=== PATIENT | female | born 2000 | race Caucasian/White ===

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

== ENCOUNTER → 2020-02-27 | Outpatient (CLI) | payer OTHER ==
[~2020-02-27] MED LIST changes: +KEFL500C17 PO; +PRENTAB9 PO; +PYRI1TAB5 PO
--- NOTE | 2020-02-28 08:51 | REP ---
REASON: anatomy. There are no priors for comparison. Multiple ultrasonographic images of the gravid uterus show a single living intrauterine gestation in the breech presentation. Doppler interrogation of the heart shows a heart rate of 146 beats per minute. The placenta is posterior and not low lying. The subjective amniotic fluid volume is within normal limits. The cervix measures 3.6 cm in length and is closed. Evaluation of the maternal adnexal spaces shows no abnormalities. anatomical structures seen to be within normal limits are as follows: Thalami, cavum septum pellucidum, cerebellum, cisterna magna, cerebral ventricles, upper lip, four-chamber heart, ventricular outflow tracts, stomach, cord insertion, three-vessel umbilical cord, urinary bladder, and upper and lower extremities. The structures suboptimally visualized or seen to be of questionable finding are as follows: profile failed to identify a nasal bone. This is not necessarily abnormal at this stage of . Followup for this is recommended. Bilateral renal pelviectasis was seen. This needs to be followed up. The spine was suboptimally visualized due to the lie. CHART: BPD 4.3 cm = 19 weeks 0 days HC 16.2 cm = 19 weeks 0 days AC 13.5 cm = 18 weeks 6 days FL 2.9 cm = 19 weeks 0 days The estimated weight is 267 grams, which is at the 66th percentile for an 18-week 3-day gestational age. IMPRESSION: Single living intrauterine gestation, as described above, with an estimated gestational age of 18 weeks 6 days via composite criteria and an estimated date of delivery of 07/24/2020. No anomalies were detected; however, I recommend a followup examination for re-evaluation of those structures as described above.
== END ==
LOC: M WHC 12:59
PROVIDERS: ATTEND Advanced Practice Midwife
DX: Z34.02 Encounter for supervision of normal first pregnancy, second trimester (principal); Z3A.18 18 weeks gestation of pregnancy

== ENCOUNTER 2020-04-27 05:00 | Emergency (ER) | payer OTHER ==
[~2020-04-27] VITALS: Ht 175.3 cm; Wt 87.8 kg
[~2020-04-27 05:00] MED LIST changes: -KEFL500C17 PO; -PRENTAB9 PO; -PYRI1TAB5 PO
[2020-04-27] MEDS ORDERED: PRENTAB9 PO (05:14)
[2020-04-27 05:45] VITALS: BP 124/68
[2020-04-27] MEDS ORDERED: KEFL500C17 PO (06:18)
[2020-04-27] MEDS ORDERED: PYRI1TAB5 PO (06:18)
[2020-04-27] MEDS ORDERED: PHENAZOPYRIDINE 100 MG TAB PO ONE (06:30)
[2020-04-27] MEDS ORDERED: CEPHALEXIN 500 MG CAP PO ONE (06:30)
== END 2020-04-27 06:38 | disposition admitted as inpatient to this hospital (09) ==
LOC: M ED 05:00
DX: O23.43 Unspecified infection of urinary tract in pregnancy, third trimester (principal); Z3A.27 27 weeks gestation of pregnancy; Z79.899 Other long term (current) drug therapy

== ENCOUNTER 2020-04-27 06:37 | Outpatient (CLI) | payer OTHER ==
[~2020-04-27] VITALS: Ht 175.3 cm; Wt 87.5 kg
[~2020-04-27 06:37] MED LIST changes: +KEFL500C17 PO; +PRENTAB9 PO; +PYRI1TAB5 PO
[2020-04-27 08:58] VITALS: BP 115/63
[2020-04-27] MEDS ORDERED: AMOXICILLIN 500 MG CAP PO ONE (10:00)
[2020-04-27] MEDS ORDERED: PHENAZOPYRIDINE 100 MG TAB PO ONE (10:00)
[2020-04-27 10:01] VITALS: BP 119/56
--- NOTE | 2020-04-27 10:28 | IPNPDOC ---
Obstetrical Progress Note Date of Service Apr 27, 2020 Subjective 19yo G1 at 27+ weeks. Presented today with c/c of dysuria. No flank pain. Denies f/c/n/v/POP/sob/cp. No VB/LOF/uctx. Reports +FM. Objective Normotensive, afebrile. Abd: soft,nt,nd No CVAT b/l [facility] / [facility] culture results. Assessment Heart Rate (FHR): 140 Variability: Moderate Accelerations: Positive Decelerations: None Heart Rate Tracing: Category I Tocometer Contractions: No Assessment and Plan Age: 19 : 1 Term: 0 Pre-term: 0 Abortions: 0 Livin Weeks & Days 27+ Status: Reassuring Additional Comments Treat UTI with Amoxicillin 500mg BID x 7 days Pyelonephritis precautions reviewed. Pyridium 100mg q8h PRN for bladder pain. Follow up in office as scheduled. Routine late 2nd TM / early 3rd TM precautions reviewed. Ht / Wt Ht / Wt Height:5 Feet 9 Inches Weight: 87.500 Kg KIMBERLY NAVARRO DO Apr 27, 2020 10:28
== END 2020-04-27 10:10 | disposition home or self-care (01) ==
LOC: M LDO 06:37
PROVIDERS: ATTEND Advanced Practice Midwife
DX: O23.42 Unspecified infection of urinary tract in pregnancy, second trimester (principal); Z3A.27 27 weeks gestation of pregnancy

== ENCOUNTER 2020-06-30 17:42 | Outpatient (CLI) | payer OTHER ==
[~2020-06-30] VITALS: Ht 175.3 cm; Wt 91.5 kg
[2020-06-30 17:57] VITALS: BP 109/62
[2020-06-30 18:47] VITALS: BP 116/66
== END 2020-06-30 18:55 | disposition home or self-care (01) ==
LOC: M LDO 17:42
PROVIDERS: ATTEND Advanced Practice Midwife
DX: O26.853 Spotting complicating pregnancy, third trimester (principal); Z3A.36 36 weeks gestation of pregnancy

== ENCOUNTER → 2020-06-30 | Outpatient (REF) | payer OTHER ==
[2020-06-30 13:55] LABS: HEMATOCRIT 30.6 % (36.0-47.0); HEMOGLOBIN 10.1 g/dl (12.0-15.5); MEAN CORPUSCULAR HEMOGLOBIN 31.8 pg (27.0-33.0); MEAN CORPUSCULAR VOLUME 96.2 fl (80.0-96.0); PLATELET COUNT, AUTOMATED 183 10^3/uL (150-450); RED BLOOD COUNT 3.18 10^6/uL (4.00-5.40); WHITE BLOOD COUNT 7.8 10^3/uL (4.0-10.0)
== END ==
LOC: M PLALAB 10:22
PROVIDERS: ATTEND Advanced Practice Midwife
DX: Z34.93 Encounter for supervision of normal pregnancy, unspecified, third trimester (principal); Z3A.33 33 weeks gestation of pregnancy

== ENCOUNTER → 2020-07-06 | Outpatient (REF) | payer OTHER | LOC: M SFHCWAGY 16:53 | PROVIDERS: ATTEND Advanced Practice Midwife | DX: Z3A.37 37 weeks gestation of pregnancy (principal); Z34.83 Encounter for supervision of other normal pregnancy, third trimester ==

== ENCOUNTER 2020-07-23 21:12 | Inpatient (IN) | payer OTHER ==
[~2020-07-23] VITALS: Ht 175.3 cm; Wt 94.9 kg
[2020-07-23] MEDS ORDERED: PENICILLIN G POTASSIUM IV 5 MU in D5W MINI-BAG PLUS 100 ML IV STA ×2 (21:40→22:08)
[2020-07-23] MEDS ORDERED: LACTATED RINGER'S 1000 ML IV STA (21:40)
[2020-07-23] MEDS ORDERED: OXYTOCIN DRIP 30 UNITS in IV 1 EA IV SCH (21:45)
--- NOTE | 2020-07-23 22:11 | HPEPDOC ---
Obstetrical History & Physical General Date of Admission Jul 23, 2020 at 21:41 History of Present Illness Lachelle is a 19 y/o at 39.3 weeks, EDC 07/27/20 by LMP on 10/21/19. She r eported to Labor and Delivery tonight with a complaint of SROM at 2100. She reports large amounts of clear fluid continuously leaking from the vagina. Denies vaginal bleeding, contractions. Reports active movement. uncomplicated but her care has been sporadic due to transportation issues. 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 history Past Medical History Medical History Denies Surgical History: Other (ACL Repair) Family History Significant Family History: Diabetes Social History Marital Status: Single Family situation: Spouse/partner home Psychosocial History: No pertinent psych hx * Smoker: non-smoker Alcohol: Denies Drugs: denies Imunizations Tdap status: needs Influenza Status: needs Allergies Coded Allergies: No Known Allergies (Unverified , 09/19/17) Medications Scheduled No.137/Iron/Folic Acd ( Vitamin Tablet) 1 Each Tablet, 1 TAB PO DAILY Physical Examination Physical Examination GENERAL: Alert and oriented times three. BREAST: . ABDOMEN: Gravid and non-tender to touch. FETUS: Is vertex (VTX) by sterile vaginal examination (SVE), fetus is vertex (VTX) by Sandeep. EFW 7-7.5lbs by Leopoltita. PELVIC: Large amount of clear fluid noted on bed, no vaginal bleeding on gloves after SVE. HEART RATE: Regular rate and rhythm. RESPIRATORY: Clear to auscultation (CTA) bilaterally. No accessory muscle use, regular rate. EXTREMITIES: No edema. No clonus. Deep tendon reflexes (DTRs) + 2. Pertinent Laboratoy Data Blood Type: O+ RBC Antibody Screen: Negative HIV: Negative Hepatitis B: Negative Hepatitis C: Negative Rapid Plasma Reagin: Nonreactive Rubella: Immune Chlamydia/Gonorrhea: Negative Group B Streptococcus: Positive Glucose Tolerance Test: 112 Anatomy Ultrasound Ultrasound Date: Feb 27, 2020 Placenta Location: Posterior Normal Anatomy: Yes (Bilateral Renal Pelviectasis seen, unable to identify nasal bone due to gestational age, otherwise normal structures) Placenta Previa: No Estimated Weight (grams): 267 Other Ultrasounds 12/15/19 - [facility] at 8wks 2 days, CRL 1.8cm Steroid Therapy Steroid Therapy: No Vaginal Examination Dilation: 1cm (1-2) Effacement: 90% Station: -1 Cervical Consistency: Soft Cervical Position: Posterior Presentation: Cephalic presentation Assessment Heart Rate (FHR): 125 Variability: Moderate Accelerations: Positive Tocometer Contractions: Yes Frequency: regular, every 2-5 min. Duration: greater than 60 seconds Strength: palpated as mild Multi-drug resistant Organism: No history of MDRO Assessment/Plan Assessment PROM at 39.3weeks GBS Positive Category 1 FHT Plan Admit and orient to Labor and Delivery. Maintenance Journeyman and consent. Diet: Clear liquids. Activity as tolerated. Group B Streptococcus (GBS) Positive, plan to treat with IV Penicillin 5million unit loading dose then 2.5million units every 4hours until delivery. Labs and intravenous (IV) per unit protocol. Plans for non-pharmacologic and IV pain relief as needed. Counseled on Pitocin and induction of labor. Lactated Ringers (LR): Bolus 500 mL, then saline lock. Anesthesia consult for epidural as needed. Anticipate normal spontaneous delivery (). C-S as appropriate. Saira Montgomery CNM Jul 23, 2020 22:11
[2020-07-23 22:13] LABS: HEMATOCRIT 30.4 % (36.0-47.0); HEMOGLOBIN 9.8 g/dl (12.0-15.5); MEAN CORPUSCULAR HEMOGLOBIN 30.2 pg (27.0-33.0); MEAN CORPUSCULAR HGB CONC 32.2 g/dl (32.0-36.5); MEAN CORPUSCULAR VOLUME 93.8 fl (80.0-96.0); PLATELET COUNT, AUTOMATED 207 10^3/uL (150-450); RED BLOOD COUNT 3.24 10^6/uL (4.00-5.40); WHITE BLOOD COUNT 11.5 10^3/uL (4.0-10.0)
[2020-07-23 22:41] LABS: ALT/SGPT 21 U/L (12-78); BILIRUBIN,TOTAL 0.4 MG/DL (0.2-1.0); CREATININE FOR GFR 0.54 MG/DL (0.55-1.30); LDH LACTATE DEHYDROGENASE 183 U/L (84-246); URIC ACID 3.7 MG/DL (2.6-6.0)
[2020-07-23] MEDS: LR 1,000 ML IV SCH (22:53)
[2020-07-24] VITALS (12 sets, daily range): BP systolic 106–138; BP diastolic 55–77
[2020-07-24] MEDS ORDERED: PROMETHAZINE INJ 25 MG/ML VIAL (J2550) IV ONE (00:45)
[2020-07-24] MEDS ORDERED: BUTORPHANOL 2 MG/ML INJ (J0595) IV ONE (00:45)
[2020-07-24] MEDS ORDERED: PENICILLIN G POTASSIUM IV 2.5 MU in IV 1 EA IV SCH (01:45)
[2020-07-24] MEDS: PENICILLIN G POTASSIUM IV 2.5 MU in IV 1 EA IV SCH ×2 (02:33→06:38)
[2020-07-24] MEDS: LR 1,000 ML IV SCH ×2 (02:37→07:49)
[2020-07-24] MEDS ORDERED: FENTANYL 2MCG/ML ROPIVACAINE 0.2% IN 0.9% NACL 100ML IVBAG As Ordered ONE (03:29)
[2020-07-24] MEDS ORDERED: ONDANSETRON 4MG/2ML VIAL IV PRN (03:40)
[2020-07-24] MEDS ORDERED: REFRIGERATOR IV KEYS XX PRN (03:40)
[2020-07-24] MEDS ORDERED: FENTANYL/ROPIVACAINE/NACL BAG 100 ML EPIDURAL SCH (03:40)
[2020-07-24] MEDS ORDERED: NALOXONE INJ 0.4MG/1ML VIAL (J2310 PER 1MG) IV PRN (03:40)
[2020-07-24] MEDS ORDERED: ePHEDrine SULFATE 25 MG/5 ML(5MG/ML) SYRINGE IV PRN (03:40)
[2020-07-24] MEDS ORDERED: LACTATED RINGER'S 1000 ML IV PRN (03:40)
[2020-07-24] MEDS ORDERED: diphenhydrAMINE 50MG/ML VIAL (J1200) IV PRN (03:40)
[2020-07-24] MEDS ORDERED: EPIDURAL/PCA KEYS XX PRN (03:40)
[2020-07-24] MEDS ORDERED: EPIDURAL COMMENT XX SCH (03:40)
--- NOTE | 2020-07-24 06:27 | IPNPDOC ---
Text Note Date of Service The patient was seen on 07/24/20. NOTE Inpatient Subjective: She progressed with Pitocin to 7cm and received epidural. Currently comfortable and sleeping through contractions. Pitocin was restarted after epidural. Objective: VSS Category 2 FHT, moderate variability, no accelerations, variable decelerations w ith contractions UC every 2-3 min., moderate on palpation, soft resting tone. Pitocin running at 4mu/min. SVE Anterior/Right Lip/100/+1 by KAYLA Singer Plan: Continue with Pitocin, Continue Penicillin until delivery, Anticipate vaginal delivery VS,Fishbone, I+O VS, Fishbone, I+O Laboratory Tests 07/23/20 22:00 Vital Signs Date Time Temp Pulse Resp B/P (MAP) Pulse Ox O2 Delivery O2 Flow Rate FiO2 07/24/20 01:20 20 Saira Montgomery CNM Jul 24, 2020 06:27
[2020-07-24 08:42] LABS: CORD GAS ABE A -8.5; CORD GAS HCO3 A 23.7 MEQ/L; CORD GAS O2 SAT A 25.7 %; CORD GAS PCO2 A 85.3 mmHg; CORD GAS PH A 7.061 UNITS; CORD GAS PO2 A 19.3 mmHg; CORD GAS SBC A 16.2 MEQ/L; CORD GAS TCO2 A 26.3 MEQ/L
[2020-07-24 08:45] LABS: CORD GAS ABE V -3.1; CORD GAS HCO3 V 24.1 MEQ/L; CORD GAS O2 SAT V 54.3 %; CORD GAS PCO2 V 51.7 mmHg; CORD GAS PH V 7.286 UNITS; CORD GAS PO2 V 24.1 mmHg; CORD GAS SBC V 20.9 MEQ/L; CORD GAS TCO2 V 25.7 MEQ/L
[2020-07-24] MEDS ORDERED: **PENDING PCN ENTRY XX SCH (09:00)
--- NOTE | 2020-07-24 09:21 | DNPDOC ---
[facility] Delivery Note Delivery Note DATE OF DELIVERY: 24 Jul 2020 PREDELIVERY DIAGNOSIS: 39w4d PROM POST DELIVERY DIAGNOSIS: Delivered, 1 min shoulder dystocia PROCEDURE: Spontaneous vaginal delivery AIRCRAFT REFUELLER: Dr. Ludmila Rosa MD ANESTHESIA: epidural ESTIMATED BLOOD LOSS: 300 mL. FINDINGS: 8 pound 12 ounce (3970g) male , Score 7/8, nuchal cord times 1 and compound left hand. DELIVERY SUMMARY: Lachelle is a 19yo [id number] s/p at 39w4d complicated by 1 min shoulder dystocia after presenting with PROM and having augmentation with pitocin, delivering at 0826 on 07/24/2020. She received an epidural and progressed to C/C/+1, at which point she began pushing. With good maternal effort, infant's head delivered CORINA. Tight nuchal cord not able to be reduced until after delivery. There was a delay in delivering the shoulders more related to compound hand and increased presenting area of the fetus. McRobert's maneuver and suprapubic pressure performed, but ultimately it was only with rotation of the fetus (Kennedy's maneuver), that the infant then delivered- anterior shoulder (compound left hand noted) followed by posterior shoulder and corpus. Nuchal cord reduced. placed on maternal abdomen, initially stunned but then had spontaneous cry and vigorous- Apgars 7/8. Infant's nose and mouth suctioned with bulb suction. After 2 minutes, cord clamped x2 and cut by FOB. Cord gases obtained (pHa 7.061 BE -8.5, pHv 7.286 BE -3.1) and cord blood for MBT O pos. W ith fundal massage and traction on the cord, placenta delivered spontaneously and intact with 3 vessel centrally inserted cord. More fundal massage performed and pitocin given IV per protocol, hemostasis then noted with fundus firm at u- 1cm. Inspection of perineum and vagina revealed a 2mll and some superficial left labial lacerations, repaired with 4-0 and 3-0 vicryl in routine fashion with excellent reapproximation and total hemostasis. Mom and infant were doing well when I left the room. MD Shelley Lynne Katrina D MD Jul 24, 2020 09:21
[2020-07-24] MEDS ORDERED: OXYTOCIN DRIP 30 UNITS in IV 1 EA IV SCH (09:22)
[2020-07-24] MEDS ORDERED: DOCUSATE SODIUM 100MG CAPSULE PO PRN (09:30)
[2020-07-24] MEDS ORDERED: ACETAMINOPHEN 500 MG TAB PO PRN (09:30)
[2020-07-24] MEDS ORDERED: RHOGAM 300 MCG (1500 IU) INJ (J2790) IM SCH (09:30)
[2020-07-24] MEDS ORDERED: BENZOCAINE 20% HEMORRHOIDAL OINTMENT 28GM TUBE TOP PRN (09:30)
[2020-07-24] MEDS ORDERED: ACETAMINOPHEN TAB 650MG DOSE (2X325MG) PO PRN (09:30)
[2020-07-24] MEDS ORDERED: IBUPROFEN 600MG TAB PO PRN (09:30)
[2020-07-24] MEDS ORDERED: MEASLES,MUMPS,RUBELLA VACCINE INJ (MMR-II) (90707) SC SCH (09:30)
[2020-07-24] MEDS: IBUPROFEN 800 MG TAB PO PRN (19:53)
[2020-07-25 05:54] VITALS: BP 132/62
[2020-07-25] MEDS ORDERED: PRENATAL VITAMINS CHEWABLE TABLET PO SCH (09:00)
[2020-07-25] MEDS: IBUPROFEN 800 MG TAB PO PRN ×2 (09:32→16:29)
--- NOTE | 2020-07-25 09:55 | IPNPDOC ---
Progress Note Date of Service: Jul 25, 2020 Day#: 1 Progress Note PPD 1 SUBJECT: Lachelle is a 19yo [id number] s/p at 39w4d complicated by 1 min shoulder dystocia after presenting with PROM and having augmentation with pitocin, delivering at 0826 on 07/24/2020, doing well day # 1. She has been ambulating, voiding spontaneously without issue and tolerating regular diet. Breast feeding without issue. Reports lochia is like a normal period. No f/c/n/v/CP/SOB. OBJECTIVE: VITAL SIGNS: Within normal limits, afebrile. Alert and oriented times three. Abdomen: Fundus firm at U-2. Soft, NTTP. Extremities: no pain with palpation of calves, no edema of BLE ASSESSMENT: Lachelle is a 19yo [id number] s/p at 39w4d complicated by 1 min shoulder dystocia after presenting with PROM and having augmentation with pitocin, delivering at 0826 on 07/24/2020, doing well day # 1. Vitals within normal limits, afebrile, hemodynamically stable with no evidence of infection. PLAN: 1. Discharge to home today if is discharged (per her strong desire), otherwise continue admission until tomorrow. 2. Tylenol and Motrin for pain. 3. Encourage breast feeding and ambulation. 4. Discussed contraception, she is undecided and we will readdress at PP visit 5. Routine PP visit in 6 weeks in clinic. 6. Discussed return precautions at length. Ludmila Rosa MD VS, I&O, 24H, Fishbone Vital Signs/I&O Vital Signs Date Time Temp Pulse Resp B/P (MAP) Pulse Ox O2 Delivery O2 Flow Rate FiO2 07/25/20 05:54 98.2 78 18 132/62 (85) 07/24/20 18:00 98 Room Air I&O- Last 24 Hours up to 6 AM 07/25/20 06:00 Intake Total 5145 ml Output Total 1100 ml Balance 4045 ml Ludmila Rosa MD Jul 25, 2020 09:55
[2020-07-25] MEDS ORDERED: IBUP80TA PO (09:57)
[2020-07-25] MEDS ORDERED: DOK1CAP7 PO (09:57)
--- NOTE | 2020-07-25 10:00 | DS.PDOC ---
Discharge Summary General Date of Admission Jul 23, 2020 at 21:41 Date of Discharge Jul 25, 2020 Discharge Summary PROCEDURES PERFORMED DURING STAY: spontaneous vaginal delivery ADMITTING DIAGNOSES: 1. pre-labor rupture of membranes DISCHARGE DIAGNOSES: 1. pre-labor rupture of membranes s/p COMPLICATIONS/CHIEF COMPLAINT: Labor Check. HISTORY OF PRESENT ILLNESS/HOSPITAL COURSE: Lachelle is a 19yo [id number] s/p at 39w4d complicated by 1 min shoulder dystocia after presenting with PROM and having augmentation with pitocin, delive ring at 0826 on 07/24/2020, doing well day # 1. She has had a benign course and at time of discharge, vitals are within normal limits, afebrile, hemodynamically stable with no evidence of infection. DISCHARGE MEDICATIONS: Please see below. ALLERGIES: Please see below. PHYSICAL EXAMINATION ON DISCHARGE: VITAL SIGNS: Within normal limits, afebrile. Alert and oriented times three. Abdomen: Fundus firm at U-2. Soft, NTTP. Extremities: no pain with palpation of calves, no edema of BLE LABORATORY DATA: Please see below. ACTIVITY: As tolerated, vaginal rest 6 weeks DIET: regular DISPOSITION: home DISCHARGE PLAN/INSTRUCTIONS: 1. Discharge to home today if is discharged (per her strong desire), otherwise continue admission until tomorrow. 2. Tylenol and Motrin for pain. 3. Encourage breast feeding and ambulation. 4. Discussed contraception, she is undecided and we will readdress at PP visit 5. Routine PP visit in 6 weeks in clinic. 6. Discussed return precautions at length. DISCHARGE CONDITION: Stable TIME SPENT ON DISCHARGE: Greater than 20 minutes. Ludmila Rosa MD Vital Signs/I&Os Vital Signs Date Time Temp Pulse Resp B/P (MAP) Pulse Ox O2 Delivery O2 Flow Rate FiO2 07/25/20 05:54 98.2 78 18 132/62 (85) 07/24/20 18:00 98 Room Air I&O- Last 24 Hours up to 6 AM 07/25/20 06:00 Intake Total 5145 ml Output Total 1100 ml Balance 4045 ml Discharge Medications Scheduled No.137/Iron/Folic Acd ( Vitamin Tablet) 1 Each Tablet, 1 TAB PO DAILY, (Reported) Scheduled PRN Docusate Sodium (Dok) 100 Mg Capsule, 100 MG PO QHSP PRN for CONSTIPATION Ibuprofen (Ibuprofen) 800 Mg Tablet, 800 MG PO Q8HP PRN for PAIN LEVEL 6-10 Allergies Coded Allergies: No Known Allergies (Unverified , 09/19/17) Ludmila Rosa MD Jul 25, 2020 10:00
[2020-07-25] MEDS ORDERED: BOOSTRIX/ADACEL VACCINE (DIPHTH/PERTUSS/ACELL/TETANUS) 0.5ML SYR IM ONE (17:00)
== END 2020-07-25 17:45 | disposition home or self-care (01) | DRG 560 ==
LOC: M LDO 21:12 → M LDI 21:41 → M OBS 07-24 10:37
PROVIDERS: ADMIT Advanced Practice Midwife; ATTEND Advanced Practice Midwife
PROC: 10E0XZZ Delivery of Products of Conception, External Approach (ICD-10-PCS; principal; 2020-07-24)
PROC: 0KQM0ZZ Repair Perineum Muscle, Open Approach (ICD-10-PCS; 2020-07-24)
PROC: 0HQ9XZZ Repair Perineum Skin, External Approach (ICD-10-PCS; 2020-07-24)
DX: O66.0 Obstructed labor due to shoulder dystocia (principal); O99.284 Endocrine, nutritional and metabolic diseases complicating childbirth; O32.6XX0 Maternal care for compound presentation, not applicable or unspecified; Z37.0 Single live birth; Z3A.39 39 weeks gestation of pregnancy; O69.1XX0 Labor and delivery complicated by cord around neck, with compression, not applicable or unspecified; O70.1 Second degree perineal laceration during delivery; O70.0 First degree perineal laceration during delivery

== ENCOUNTER 2021-01-13 01:45 | Emergency (ER) | payer OTHER ==
[~2021-01-13] VITALS: Ht 175.3 cm; Wt 94.9 kg
[~2021-01-13 01:45] MED LIST changes: +DOK1CAP7 PO; +EMTR1TAB16 PO; +IBUP80TA PO; -TRUVTAB PO
[2021-01-13 05:32] VITALS: BP 118/60
== END 2021-01-13 05:34 | disposition home or self-care (01) ==
LOC: M ED 01:45
DX: S01.01XA Laceration without foreign body of scalp, initial encounter (principal); W22.8XXA Striking against or struck by other objects, initial encounter; Y92.018 Other place in single-family (private) house as the place of occurrence of the external cause

== ENCOUNTER 2021-01-25 23:58 | Inpatient (IN) | payer MEDICAID, OTHER ==
[~2021-01-25] VITALS: Ht 175.3 cm; Wt 96.1 kg
[2021-01-26 01:05] LABS: HEMOGLOBIN 11.7 g/dl (12.0-15.5); MEAN CORPUSCULAR HEMOGLOBIN 29.7 pg (27.0-33.0); MEAN CORPUSCULAR HGB CONC 32.5 g/dl (32.0-36.5); MEAN CORPUSCULAR VOLUME 91.4 fl (80.0-96.0); PLATELET COUNT, AUTOMATED 256 10^3/uL (150-450); RED BLOOD COUNT 3.94 10^6/uL (4.00-5.40); WHITE BLOOD COUNT 13.6 10^3/uL (4.0-10.0)
[2021-01-26 01:44] LABS: ACETAMINOPHEN LEVEL < 2.0 UG/ML (10.0-30.0); ALBUMIN 3.3 GM/DL (3.2-5.2); ALT/SGPT 15 U/L (12-78); BILIRUBIN,DIRECT 0.1 MG/DL (0.0-0.2); BILIRUBIN,TOTAL 0.3 MG/DL (0.2-1.0); BLOOD UREA NITROGEN 6 MG/DL (7-18); CALCIUM LEVEL 8.6 MG/DL (8.5-10.1); CARBON DIOXIDE LEVEL 27 MEQ/L (21-32); CHLORIDE LEVEL 107 MEQ/L (98-107); CREATININE FOR GFR 0.59 MG/DL (0.55-1.30); ETHYL ALCOHOL (ETHANOL) < 0.003 % (0.000-0.010); GLUCOSE, FASTING 117 MG/DL (70-100); POTASSIUM SERUM 3.4 MEQ/L (3.5-5.1); SALICYLATE LEVEL < 1.7 MG/DL (5.0-30.0); SODIUM LEVEL 138 MEQ/L (136-145); THYROID STIMULATING HORMONE 0.468 uIU/ML (0.463-3.98); TOTAL PROTEIN 6.9 GM/DL (6.4-8.2)
[2021-01-26 03:00] LABS: AMPHETAMINES LEVEL URINE NEGATIVE (NEGATIVE); BARBITURATES URINE NEGATIVE (NEGATIVE); BENZODIAZEPINES URINE NEGATIVE (NEGATIVE); CANNABINOIDS URINE POSITIVE (NEGATIVE); COCAINE METABOLITE URINE NEGATIVE (NEGATIVE); METHADONE URINE NEGATIVE (NEGATIVE); OPIATES URINE NEGATIVE (NEGATIVE); PHENCYCLIDINE URINE NEGATIVE (NEGATIVE)
[2021-01-26 13:25] LABS: RSV AMPLIFICATION NEGATIVE (NEGATIVE)
[2021-01-26 14:23] LABS: HCG, SERUM QUALITATIVE POSITIVE (NEGATIVE)
[2021-01-26 16:19] VITALS: BP 119/66
[2021-01-27 05:57] VITALS: BP 145/65
[2021-01-27] MEDS ORDERED: ZOLO100T PO (08:51)
[2021-01-27] MEDS: PRENATAL VITAMINS CHEWABLE TABLET PO SCH (09:00)
--- NOTE | 2021-01-27 10:50 | MHHPEPDOC ---
General Date Of Admission: Jan 26, 2021 Legal Status: 9.39 Chief Complaint ". Might have been depressed since the baby was born, but I'm not suicidal History of Present Illness HISTORY OF THE PRESENT ILLNESS: Patient is a 20 -year-old Other, female, who [has no previous psychiatric history who apparently has been suffering from depression since July 2020.. She delivered a healthy son June 2020 and has been experiencing increasing depression for the past 6 months. She has been feeling very sad, tired and have no energy and spending a lot of time in bed, with increased sleep. She has frequent crying spells and doesn't experience much efrain in her life. She was given Zoloft 50 mg by her ASSOCIATE PROFESSOR OF SURGERY MD and took it for a month with only mild, benefit, but ran out of it 5 weeks ago.. She was brought to emergency room by her due to increasing depression and admitted on 939 status. The patient denies any suicidal thoughts, plan or intent and is willing to accept treatment, but reports that she has an urgent procedure scheduled this afternoon for her current , which is 7 weeks old. [facility] and is very anxious to keep the appointment. She is denying any psychosis, denies any history of suicidal attempt, has a very good supportive partner and is willing to accept recommendation to take increased Zoloft 100 mg and accept outpatient mental health follow up appt. Patient was also advised to come back to emergency room if her depression gets any worse after the procedure and patient is fully understand.]. Psychiatric Review of Systems Depression (2 or more weeks): depressed mood, anhedonia, insomnia/hypersomnia, decreased energy, difficulty concentrating Harika (4 or more days of): denies Psychosis: denies PTSD: denies Anxiety: situational anxiety, stressor related anxiety Past Psychiatric History Previous Psychiatric Diagnosis: . depression Previous Psychiatric Admissions: . No prior inpatient treatment Suicide Attempts: ., No history of suicidal attempt Psychiatric Follow-up: . Was getting antidepressant from her ASSOCIATE PROFESSOR OF SURGERY Psychiatric medications: ., Zoloft 50 mg Past Medical History Medical Problems Denies any medical issues Head Injury: No Seizures: No Hospitalizations: No Surgeries: No Family Medical/Psychiatric HX Medical Problems Noncontributory Psychiatric Disorders: Yes (. Patient's mother had some depression has been on medications but no inpatient treatment and no history of suicide) Addiction: No Suicide Attemps/Completions: No Addiction History denies Social History Childhood: . Unremarkable. Denies any abuse history Abuse/Trauma:. Current Living Situation: [Lives with her boyfriend of 5 years]. Education: High school. Employment: ., Unemployed Social Support: . Boyfriend Legal: . No legal history. No history of violence Marital: . Been with a boyfriend for 5 years Mental Status Examination General Appearance: appears stated age Build: average Demeanor: average Eye Contact: average Activity: average, anxious Behavior: cooperative Speech: clear, low in volume Mood: depressed, anxious Affect: full, constricted, appropriate, congruent, anxious Thought Process: logical/linear Thought Content (Delusions): none reported, denies SI, HI, AVH Thought Content (Other): none reported Thought Content (Aggressive): none reported Perception (Hallucinations): none reported Perception (Other): none reported Cognition (Impairment of): none reported Cognition(Intelligence Est.): average Oriented: Awake, Alert, Oriented times three Insight: good Judgment: Good Psychosis: Denies Diagnoses depression without any psychosis A-FIB/CHADSVASC A-FIB History Current/History of A-Fib/PAF?: No Current PO Anticoag Therapy: No Age/Risk Factor Scoring CHADSVASC: CHADSVASC Response (Comments) Value Gender Risk Factor Female 1 Hx of CHF No 0 Hx of HTN No 0 Hx of Stroke/TIA/or VTE No 0 Hx of Diabetes No 0 Hx of Vascular Disease No 0 Total 1 Treatment Treatment ordered: NONE Assessment Depressive symptoms of depressed significant, but has not been in active treatment. Patient will be given. Increase Zoloft 100 mg daily and given outpatient appointment to follow up. Patient is not acutely suicidal and has good insight and has good support from her boyfriend and appears safe to discharge so she can follow up with her scheduled procedure. She fully understands that she can come back for inpatient admission if her depressive symptoms worsened. Initial Treatment Plan 1. Patient was admitted on a 939 status. 2. Complete history was obtained. 3. With patients permission, family will be contacted and database will be expanded. 4. Patients medication regimen will be reviewed and changed accordingly. 5. Patient will be provided with protected environment. 6. Patient will be treated with individual, group, and milieu therapies. 7. Patient will receive supportive psych-education. 8. Discharge planning will commence immediately. 9. Outpatient follow-up treatment will be strongly recommended. 10. The initial treatment plan will focus initially on: * Depression. * Risk for suicide. ESTIMATED LENGTH OF STAY: - DAYS. Patient will be discharged today. TIME SPENT COUNSELING AND COORDINATING INITIAL CARE: 44 minutes. Tobacco Cessation Screen If Patient is a Smoker Patient is a nonsmoker N/A-No Antipsychotics Vital Signs Vital Signs Date Time Temp Pulse Resp B/P (MAP) Pulse Ox O2 Delivery O2 Flow Rate FiO2 01/27/21 05:57 99.3 83 18 145/65 (91) 99 Room Air Laboratory Data 24H Labs Laboratory Tests 2 01/26/21 12:18: Coronavirus (COVID-19)(PCR) NEGATIVE, Influenza Type A (RT-PCR) NEGATIVE, Influenza Type B (RT-PCR) NEGATIVE, Respiratory Syncytial Virus (PCR) NEGATIVE Medications Scheduled Sertraline Hcl (Zoloft) 100 Mg Tablet, 100 MG PO QHS for depression Allergies Coded Allergies: No Known Allergies (Unverified , 09/19/17) SEAMUS CULVER M.D. Jan 27, 2021 10:49
--- NOTE | 2021-01-27 11:04 | MHDSPDOC ---
[facility] Discharge Summary Discharge Summary DATE OF ADMISSION: Jan 26, 2021 at 13:27 DATE OF DISCHARGE: January 17 06/01/2021 DISCHARGE DIAGNOSES: 1. . depression 2. . REASON FOR ADMISSION: Admitted due to increasing depression since childbirth. In June 2020. Patient was having crying spells, decreased energy, increased sleep, but no psychosis and no suicidal thoughts CONSULTANTS INVOLVED: None TREATMENT AND PROGRESS ON THE UNIT : The patient remains depressed but not suicidal. [facility] and is asking for discharge to follow up with the appointment. . HOSPITAL COURSE: Patient is fully cooperating with assessment and is not presenting with any psychotic symptoms and does not appear to be acutely suicidal. Patient was given increased the Zoloft prescription and outpatient mental health appointment and advised to come back to the emergency room if her depression worsens. DISCHARGE ASSESSMENT: Remains depressed but not psychotic and not suicidal MENTAL STATUS EXAMINATION ON DISCHARGE: Patient is a 20-year old female, who is , cooperative and in good control. Speech is rational, coherent. Language skills are good . Thought processes including: , Relevant, coherent. Thought content: . No psychotic symptoms, but significant depressive symptoms. Abstract reasoning, and computation: Fair. Description of associations: Were organized. Description of abnormal or psychotic thoughts: None. Judgment: Good. Insight: ,good. Orientation to , well oriented. Recent and remote memory: Good]. Attention span and concentration: Good. Language: . Fund of knowledge: . Mood: , Depressed. Affect: , Appropriate. MEDICATIONS ON DISCHARGE: - for ., Zoloft 100 mg daily for 7 days with 3 refills - for . - for . PLAN/FOLLOWUP ARRANGEMENTS: Arranged by life care planner . The amount of time spent in the coordination of care for this patient was approximately [30 minutes. ETOH/Disorder Med Rx ETOH/DRUG DISORDER RX: N/A Vital Signs/I&Os Vital Signs Date Time Temp Pulse Resp B/P (MAP) Pulse Ox O2 Delivery O2 Flow Rate FiO2 01/27/21 05:57 99.3 83 18 145/65 (91) 99 Room Air Laboratory Data Labs 24H Laboratory Tests 2 01/26/21 12:18: Coronavirus (COVID-19)(PCR) NEGATIVE, Influenza Type A (RT-PCR) NEGATIVE, Influenza Type B (RT-PCR) NEGATIVE, Respiratory Syncytial Virus (PCR) NEGATIVE Medications Scheduled Sertraline Hcl (Zoloft) 100 Mg Tablet, 100 MG PO QHS for depression for 7 Days, #7 Allergies Coded Allergies: No Known Allergies (Unverified , 09/19/17) SEAMUS CULVER M.D. Jan 27, 2021 11:04
--- NOTE | 2021-01-27 17:21 | HPEPDOC ---
[facility] Medical History & Physical Date of Admission Jan 27, 2021 Date of Service: Jan 27, 2021 History and Physical CHIEF COMPLAINT: Depression REASON FOR CONSULT: Medical evaluation HISTORY OF PRESENT ILLNESS: 20 y/o female admitted to the inpatient mental health unit for depression. I am asked to provide a medical assessment of patient admitted to psychiatric unit. My assessment is limited to medical problems and does not address any psychiatric problems which is deferred to the in-house psychiatrist. Patient is currently , approximately 7 weeks by LMP and also had 4 samantha placed on scalp for laceration sustained 14 days ago. She has no other acute medical issues at this time. PAST MEDICAL HISTORY: Post depression PAST SURGICAL HISTORY: None SOCIAL HISTORY: Marital status: single Resides in: house in [place] with boyfriend and 7 month old son, Phong Children: 1 Employment: not currently employeed Tobacco use: none ETOH: occasional Illicit drug use: THC smoking FAMILY HISTORY: No history of CAD/suicide/malignancy ALLERGIES: NKDA REVIEW OF SYSTEMS: A 10 point ROS was obtained and was negative. HOME MEDICATIONS: None PHYSICAL EXAMINATION: VITAL SIGNS: reviewed GENERAL APPEARANCE: Awake, alert, oriented x 3. NAD HEENT: Atraumatic, normocephalic. Eyes are anicteric. Mucous membranes are pink and moist. Coolin in place to top of scalp, no e/o infection CARDIOVASCULAR: NSR, regular rhythm, no noted murmurs LUNGS: CTAB ABDOMEN: Normoactive sounds, soft, nondistended. No rebound tenderness or guarding. EXTREMITIES: No lower extremity edema, no apparent rashes/petechiae. NEUROLOGICAL: Awake, speech is clear, AOx3 PSYCHIATRIC: euthymic LABORATORY DATA: See below. IMAGING: None ASSESSMENT: Medical evaluation for patient admitted to inpatient mental health unit. Patient is doing well and has no active medical problems requiring in hospital management. Removed samantha with staple remover and had no complications. Regarding , will order pre-, though patient expresses interest in pursuing termination of [facility] Follow-up with PCP after discharge. Follow-up with recommendations and management from psychiatry. Vital Signs Vital Signs Date Time Temp Pulse Resp B/P (MAP) Pulse Ox O2 Delivery O2 Flow Rate FiO2 01/27/21 05:57 99.3 83 18 145/65 (91) 99 Room Air Home Medications Scheduled Sertraline Hcl (Zoloft) 100 Mg Tablet, 100 MG PO QHS for depression Allergies Coded Allergies: No Known Allergies (Unverified , 09/19/17) A-FIB/CHADSVASC A-FIB History Current/History of A-Fib/PAF?: No Current PO Anticoag Therapy: No Age/Risk Factor Scoring CHADSVASC: CHADSVASC Response (Comments) Value Age Risk Factor Age < 65 years old 0 Gender Risk Factor Female 1 Hx of CHF No 0 Hx of HTN No 0 Hx of Stroke/TIA/or VTE No 0 Hx of Diabetes No 0 Hx of Vascular Disease No 0 Total 1 SHELLIE JOSHUA MD MPH Jan 27, 2021 17:21
[2021-01-27 17:39] VITALS: BP 120/71
[2021-01-27] MEDS: SERTRALINE 100 MG TAB PO SCH (20:46)
[2021-01-28 05:46] VITALS: BP 118/60
--- NOTE | 2021-01-28 08:30 | MHIPNPDOC ---
[facility] Progress Note Progress Note DATE OF SERVICE: 01/28/21 The initial plan of the discharge and the patient same-day to follow up with the OB procedure was canceled due to strong concern by her boyfriend who is the baby of the father. The boyfriend reported that her depression is such that he has a serious concern for her safety and the presenting mental status does support this concern. The patient this morning is quite distraught bursting into tears and crying saying that she misses her baby and she wants to go home. She does admit that she is very depressed and agrees that she needs help. She is again denying any psychotic symptoms and denies any thoughts of active suicidal nature but appears very emotional, labile and markedly depressed. She did cooperate with her medication of Zoloft and clearly needs further inpatient treatment for stabilization. HISTORY: . VITAL SIGNS: See below. NEW TEST RESULTS: . CURRENT MEDICATIONS: See below. MENTAL STATUS EXAMINATION: Patient is a 20-year old female, who is tearful. Speech: Is relevant, but not productive. Language skills are [fair. Thought processes including: , Not spontaneous, but coherent. Thought content: Denies suicidal thoughts, was feeling very depressed. Abstract reasoning, and computation: , Poor. Description of associations: Relevant. Description of abnormal or psychotic thoughts: Non-. Judgment: poor. Insight: poor. Orientation: , Oriented. Recent and remote memory: fair. Attention span and concentration: fair. Language: . Fund of knowledge: . Mood: Cure for depressed. Affect: Markedly depressed. DIAGNOSES: 1. . Major depression, single episode 2. ., Rule out depression 3. . ASSESSMENT:Remained markedly depressed MANAGEMENT PLAN: Needs stabilization with the medications. Supportive therapy and metallic evaluation. TIME SPENT: 20 minutes. Vital Signs Vital Signs Date Time Temp Pulse Resp B/P (MAP) Pulse Ox O2 Delivery O2 Flow Rate FiO2 01/28/21 05:46 98.5 81 16 118/60 (79) 97 Room Air Current Medications Current Medications Medications (Trade) Dose Ordered Sig/Cliff Route PRN Reason Start Time Stop Time Status Last Admin Dose Admin Home Med (Med Rec Complete!) ASDIRECTED XX 01/26/21 12:25 01/26/21 12:25 DC Prenat Multivit/ Zinc/Iron/Folic Ac ( Vitamins) 1 tab DAILY PO 01/27/21 09:00 Sertraline HCl (Zoloft) 100 mg QHS PO 01/27/21 21:00 01/27/21 20:46 Allergies Coded Allergies: No Known Allergies (Unverified , 09/19/17) SEAMUS CULVER M.D. Jan 28, 2021 08:30
[2021-01-28] MEDS: PRENATAL VITAMINS CHEWABLE TABLET PO SCH (08:50)
[2021-01-28 16:50] VITALS: BP 142/75
[2021-01-28] MEDS: SERTRALINE 100 MG TAB PO SCH (20:13)
[2021-01-28] MEDS: diphenhydrAMINE 50MG CAP PO PRN (21:02)
[2021-01-29 06:00] VITALS: BP 121/56
[2021-01-29] MEDS: ACETAMINOPHEN TAB 650MG DOSE (2X325MG) PO PRN ×2 (08:51→20:15)
[2021-01-29] MEDS: PRENATAL VITAMINS CHEWABLE TABLET PO SCH (08:51)
--- NOTE | 2021-01-29 09:49 | MHIPNPDOC ---
[facility] Progress Note Progress Note DATE OF SERVICE: 01/29/21 The patient is fully cooperated with the medications and tomlin activities. She is not as tearful and not as dramatic and is in better control. She has cooperated with the Zoloft with no complaint of side effects but had a slight difficulty sleeping and was given trazodone with good relief. She is feeling not as anxious or fearful and stated that she spoke with the and feeling reassured and is willing to cooperate with treatment. She is denying any suicidal thoughts and appears not as anxious and slightly more spontaneous. HISTORY: . VITAL SIGNS: See below. NEW TEST RESULTS: . CURRENT MEDICATIONS: See below. MENTAL STATUS EXAMINATION: Patient is a 20-year old female, who is , cooperative and pleasant. Speech: Is rational, coherent. Language skills are good. Thought processes including: Relevant. Thought content: Denies any suicidal thoughts. Abstract reasoning, and computation: fair. Description of associations: , Better organized. Description of abnormal or psychotic thoughts: Denies any hallucination or pa ranoia . Judgment: fair. Insight: fair.. Orientation: , Oriented. Recent and remote memory: Good. Attention span and concentration: fair. Language: . Fund of knowledge: . Mood: Not tearful or and not as anxious]. Affect: , Depressed, appropriate. DIAGNOSES: 1. . Major depression 2. . 3. . ASSESSMENT:Slight improvement MANAGEMENT PLAN: . Continue with the current medicine and supportive therapy. TIME SPENT: 20 minutes. Vital Signs Vital Signs Date Time Temp Pulse Resp B/P (MAP) Pulse Ox O2 Delivery O2 Flow Rate FiO2 01/29/21 06:00 98.5 76 18 121/56 (77) 98 01/28/21 05:46 Room Air Current Medications Current Medications Medications (Trade) Dose Ordered Sig/Cliff Route PRN Reason Start Time Stop Time Status Last Admin Dose Admin Acetaminophen (Tylenol Tab) 650 mg Q6HP PRN PO MILD PAIN or TEMP > 101 01/29/21 08:40 01/29/21 08:51 Diphenhydramine HCl (Benadryl) 50 mg QHSP PRN PO INSOMNIA 01/28/21 20:35 01/28/21 21:02 Home Med (Med Rec Complete!) ASDIRECTED XX 01/26/21 12:25 01/26/21 12:25 DC Prenat Multivit/ Milled [employer]ker/Iron/Folic Ac ( Vitamins) 1 tab DAILY PO 01/27/21 09:00 Sertraline HCl (Zoloft) 100 mg QHS PO 01/27/21 21:00 01/28/21 20:13 Allergies Coded Allergies: No Known Allergies (Unverified , 09/19/17) SEAMUS CULVER M.D. Jan 29, 2021 09:49
[2021-01-29] MEDS: diphenhydrAMINE 50MG CAP PO PRN (20:15)
[2021-01-29] MEDS: SERTRALINE 100 MG TAB PO SCH (20:15)
[2021-01-30 06:19] VITALS: BP 119/57
--- NOTE | 2021-01-30 08:48 | MHIPNPDOC ---
[facility] Progress Note Progress Note DATE OF SERVICE: 01/30/21 The patient has cooperated with the medication has no new complaint and reports no side effect. She appears not as tearful and smiling a little bit and not dem anding and more pleasant on approach. She reports that those she is feeling better and not feeling as sad and hasn't cried. She talked to her boyfriend and was told that the baby said his first word and is very proud of that.. She is denying any suicidal thoughts and appears to be showing some improvement. HISTORY: . VITAL SIGNS: See below. NEW TEST RESULTS: . CURRENT MEDICATIONS: See below. MENTAL STATUS EXAMINATION: Patient is a 20 -year old female, who is , pleasant and cooperative. Speech: Is rational, coherent. Language skills are good. Thought processes including: Relevant. Thought content: No suicidal thoughts. Abstract reasoning, and computation: fair. Description of associations: , Organized. Description of abnormal or psychotic thoughts: Denies . Judgment: fair. Insight: fair.. Orientation: , Oriented. Recent and remote memory: fair. Attention span and concentration: . Language: . Fund of knowledge: . Mood: , Not clearly had said. Affect: More animated and appropriate]. DIAGNOSES: 1. . Major depression 2. . 3. . ASSESSMENT:[Showing improvement and denies any suicidal thoughts] MANAGEMENT PLAN: [Continued the Zoloft and supportive therapy]. TIME SPENT: [20] minutes. Vital Signs Vital Signs Date Time Temp Pulse Resp B/P (MAP) Pulse Ox O2 Delivery O2 Flow Rate FiO2 01/30/21 06:19 99.2 77 18 119/57 (77) 99 Room Air Current Medications Current Medications Medications (Trade) Dose Ordered Sig/Cliff Route PRN Reason Start Time Stop Time Status Last Admin Dose Admin Acetaminophen (Tylenol Tab) 650 mg Q6HP PRN PO MILD PAIN or TEMP > 101 01/29/21 08:40 01/29/21 20:15 Diphenhydramine HCl (Benadryl) 50 mg QHSP PRN PO INSOMNIA 01/28/21 20:35 01/29/21 20:15 Home Med (Med Rec Complete!) ASDIRECTED XX 01/26/21 12:25 01/26/21 12:25 DC Prenat Multivit/ Pershing/Iron/Folic Ac ( Vitamins) 1 tab DAILY PO 01/27/21 09:00 Sertraline HCl (Zoloft) 100 mg QHS PO 01/27/21 21:00 01/29/21 20:15 Allergies Coded Allergies: No Known Allergies (Unverified , 09/19/17) SEAMUS CULVER M.D. Jan 30, 2021 08:48
[2021-01-30] MEDS: PRENATAL VITAMINS CHEWABLE TABLET PO SCH (09:00)
[2021-01-30] MEDS: ACETAMINOPHEN TAB 650MG DOSE (2X325MG) PO PRN (14:50)
[2021-01-30 17:32] VITALS: BP 136/68
[2021-01-30] MEDS: SERTRALINE 100 MG TAB PO SCH (20:48)
[2021-01-30] MEDS: diphenhydrAMINE 50MG CAP PO PRN (20:49)
[2021-01-31 06:37] VITALS: BP 114/61
[2021-01-31] MEDS: PRENATAL VITAMINS CHEWABLE TABLET PO SCH (09:00)
--- NOTE | 2021-01-31 10:46 | MHDSPDOC ---
[facility] Discharge Summary Discharge Summary DATE OF ADMISSION: Jan 26, 2021 at 13:27 DATE OF DISCHARGE: 01/31/2021 DISCHARGE DIAGNOSES: 1. . Major depression, single episode 2. ., Rule out depression REASON FOR ADMISSION: , Severe depression since July 2020 when she had the baby. Patient was admitted after becoming increasingly depressed with crying spells, anhedonia, poor energy, and inability to care for self and the baby. She has no history of corinna and she denied any active suicidal thoughts. CONSULTANTS INVOLVED: [no TREATMENT AND PROGRESS ON THE UNIT : Patient was treated with daily supportive therapy and started on Zoloft 100 mg at bedtime. She is fully cooperate and showed rapid improvement. His becoming much more animated, spontaneous and productive. Reports increased energy and motivation and feeling safe.. HOSPITAL COURSE: . She responded well to the supportive therapy and medication and showed rapid improvement. She is animated, pleasant and reports having more energy and didn't have any more crying spells since 3 days ago. She is willing to accept outpatient treatment and has a supportive boyfriend. DISCHARGE ASSESSMENT: Much improved and stable and not suicidal MENTAL STATUS EXAMINATION ON DISCHARGE: Patient is a 20-year old female, who is , pleasant and cooperative. Speech is rational productive. Language skills are good . Thought processes including: , Coherent. Thought content: Denies any psychosis and no suicidal thoughts. Abstract reasoning, and computation: Fair. Description of associations: Well-organized. Description of abnormal or psychotic thoughts: None . Judgment: Good. Insight: Good. Orientation to , well-oriented. Recent and remote memory: Good. Attention span and concentration: Fair. Language: . Fund of knowledge: . Mood: Euthymic. Affect: . Animated and appropriate MEDICATIONS ON DISCHARGE: - for ., Zoloft 100 mg at bedtime for 7 days with 3 refills - for . - for . PLAN/FOLLOWUP ARRANGEMENTS: Arranged by the digital media planner. The amount of time spent in the coordination of care for this patient was approximately 40 minutes. ETOH/Disorder Med Rx ETOH/DRUG DISORDER RX: N/A Vital Signs/I&Os Vital Signs Date Time Temp Pulse Resp B/P (MAP) Pulse Ox O2 Delivery O2 Flow Rate FiO2 01/31/21 06:37 98.3 83 18 114/61 (78) 99 Room Air Medications Scheduled Sertraline Hcl (Zoloft) 100 Mg Tablet, 100 MG PO QHS for depression for 7 Days, #7 Allergies Coded Allergies: No Known Allergies (Unverified , 09/19/17) SEAMUS CULVER M.D. Jan 31, 2021 10:46
== END 2021-01-31 11:00 | disposition home or self-care (01) | DRG 757 ==
LOC: M ED 23:58 → M ED INP 01-26 13:27 → M PSY 01-26 16:14 → M ED INP 01-26 16:14
PROVIDERS: ADMIT Psychiatry & Neurology Psychiatry; ATTEND Psychiatry & Neurology Psychiatry
DX: F53.0 Postpartum depression (principal)

== ENCOUNTER → 2021-03-01 | Outpatient (CLI) | payer OTHER ==
[~2021-03-01] MED LIST changes: +ZOLO100T PO
--- NOTE | 2021-03-01 14:33 | REP ---
INDICATION: PREG, DATING/VIABILITY. COMPARISON: None. TECHNIQUE: Real-time sonographic evaluation of the gravid uterus performed. FINDINGS: Estimated gestational age is15 weeks 2 days, EDC 08/21/2021. Presentation: Transverse Placenta posterior to the right, grade 0, without evidence of placenta previa. heart rate is recorded at 149 beats per minute. Amniotic fluid is subjectively normal. Closed cervical length is measured at 4.3 cm. Biometry chart: BPD: 30 mm, 15 weeks 4 days, 57th percentile. HC: 110 mm, 15 weeks 2 days, 49th percentile AC: 91 mm, 15 weeks 2 days, 50th percentile Femur length: 18 mm, 15 weeks 2 days, 47th percentile HC to AC ratio: 1.20, normal range 1.10-1.29. Estimated weight: 120g, 37th percentile. Visualization of enemy is limited due to early gestational age. The choroid plexus, facial profile, stomach and bladder are visualized and are grossly unremarkable. There does appear to be a three-vessel umbilical cord and normal appearing cord insertion. IMPRESSION: Viable single intrauterine gestation as above. <Electronically signed by Hussein Hernandez > 03/01/21 [id number]
== END ==
LOC: M RAD 13:13
PROVIDERS: ATTEND Physician Assistant
DX: Z32.01 Encounter for pregnancy test, result positive (principal); Z3A.15 15 weeks gestation of pregnancy

== ENCOUNTER 2021-11-15 17:36 | Emergency (ER) | payer MEDICAID, OTHER ==
[~2021-11-15] VITALS: Ht 175.3 cm; Wt 91.5 kg
[~2021-11-15 17:36] MED LIST changes: +DOK1CAP4 PO; -DOK1CAP7 PO
[2021-11-15] MEDS ORDERED: ACETAMINOPHEN 325 MG TAB PO ONE (19:30)
[2021-11-15] MEDS ORDERED: DOXY-443 PO (20:27)
[2021-11-15 20:59] VITALS: BP 116/65
[2021-11-15] MEDS ORDERED: OSEL75CA PO (21:16)
== END 2021-11-15 21:26 | disposition home or self-care (01) ==
LOC: M ED 17:36
DX: J18.9 Pneumonia, unspecified organism (principal); J09.X2 Influenza due to identified novel influenza A virus with other respiratory manifestations

== ENCOUNTER 2022-03-19 09:57 | Emergency (ER) | payer MEDICAID, SELFPAY ==
[~2022-03-19] VITALS: Ht 175.3 cm; Wt 86.4 kg
[~2022-03-19 09:57] MED LIST changes: +DOXY-443 PO; +OSEL75CA PO
[2022-03-19 14:26] VITALS: BP 113/65
[2022-03-19 14:30] LABS: RSV AMPLIFICATION NEGATIVE (NEGATIVE)
[2022-03-19] MEDS ORDERED: PSEUDOEPHEDRINE 30 MG TAB PO STA (14:39)
[2022-03-19] MEDS ORDERED: ACETAMINOPHEN 500 MG TAB PO ONE (14:40)
[2022-03-19] MEDS ORDERED: BENZONATATE 100MG CAPSULE PO ONE (14:40)
[2022-03-19] MEDS ORDERED: PSEU120T19 PO (14:51)
[2022-03-19] MEDS ORDERED: BENZ200C70 PO (14:51)
== END 2022-03-19 15:57 | disposition home or self-care (01) ==
LOC: M ED 09:57
DX: U07.1 COVID-19 (principal)

== ENCOUNTER 2022-08-05 20:58 | Emergency (ER) | payer MEDICAID, OTHER ==
[~2022-08-05] VITALS: Ht 172.7 cm; Wt 99.5 kg
[~2022-08-05 20:58] MED LIST changes: +BENZ200C70 PO; +PSEU120T19 PO
[2022-08-05 20:59] VITALS: BP 139/89
== END 2022-08-05 21:45 | disposition left against medical advice (07) ==
LOC: M ED 20:58
DX: Z53.21 Procedure and treatment not carried out due to patient leaving prior to being seen by health care provider (principal)

== ENCOUNTER → 2024-04-07 | Outpatient (CLI) | payer MEDICAID, OTHER ==
[~2024-04-07] MED LIST changes: +DOXY-323 PO; -DOXY-443 PO; +ONDA-282 PO; -ONDA4TAB6 PO
[2024-04-07 16:06] LABS: BASO % 0.3 % (0.0-1.0); EOS # 0.1 10^3/uL (0.0-0.5); EOS % 1.2 % (0.0-3.0); HEMATOCRIT 39.2 % (36.0-47.0); HEMOGLOBIN 12.5 g/dl (12.0-15.5); LYMPH % 22.6 % (24.0-44.0); MEAN CORPUSCULAR HEMOGLOBIN 29.6 pg (27.0-33.0); MEAN CORPUSCULAR HGB CONC 31.9 g/dl (32.0-36.5); MEAN CORPUSCULAR VOLUME 92.7 fl (80.0-96.0); MONO # 0.6 10^3/uL (0.0-0.8); MONO % 6.9 % (2.0-8.0); NEUTROPHILS # 6.1 10^3/uL (1.5-8.5); NEUTROPHILS % 68.5 % (36.0-66.0); PLATELET COUNT, AUTOMATED 286 10^3/uL (150-450); RED BLOOD COUNT 4.23 10^6/uL (4.00-5.40); WHITE BLOOD COUNT 8.9 10^3/uL (4.0-10.0)
[2024-04-07 16:36] LABS: ALBUMIN 3.9 G/DL (3.2-5.2); ALKALINE PHOSPHATASE 84 U/L (46-116); ALT/SGPT 22 U/L (7.0-40); AST/SGOT 22 U/L (<34); BILIRUBIN,TOTAL 0.4 MG/DL (0.3-1.2); BLOOD UREA NITROGEN 13 MG/DL (9-23); CALCIUM LEVEL 9.2 MG/DL (8.5-10.1); CARBON DIOXIDE LEVEL 27 MMOL/L (20-31); CHLORIDE LEVEL 108 MMOL/L (98-107); CREATININE FOR GFR 0.66 MG/DL (0.55-1.30); GLOMERULAR FILTRATION RATE > 60.0 (>60); GLUCOSE, FASTING 88 MG/DL (60-100); POTASSIUM SERUM 4.2 MMOL/L (3.5-5.1); SODIUM LEVEL 137 MMOL/L (136-145); TOTAL PROTEIN 7.3 G/DL (5.7-8.2)
[2024-04-07 16:38] LABS: FREE T4 1.14 NG/DL (0.89-1.76); THYROID STIMULATING HORMONE 0.716 uIU/ML (0.55-4.78)
== END ==
LOC: M PLALAB 11:52
PROVIDERS: ATTEND Psychiatry & Neurology Psychiatry
DX: F41.1 Generalized anxiety disorder (principal); F43.23 Adjustment disorder with mixed anxiety and depressed mood

== ENCOUNTER → 2024-06-04 | Outpatient (REF) | payer MEDICAID, OTHER ==
[~2024-06-04] MED LIST changes: -DOXY-323 PO; +DOXY-441 PO
== END ==
LOC: M SFHCWAGY 15:05
PROVIDERS: ATTEND Nurse Practitioner Family
DX: Z12.4 Encounter for screening for malignant neoplasm of cervix (principal); R87.5 Abnormal microbiological findings in specimens from female genital organs

== ENCOUNTER → 2024-06-09 | Outpatient (REF) | payer OTHER | LOC: M SFHCWAGY 14:50 | PROVIDERS: ATTEND Nurse Practitioner Family | DX: D28.0 Benign neoplasm of vulva (principal) ==

== ENCOUNTER → 2024-12-17 | Outpatient (CLI) | payer OTHER ==
[2024-12-17 10:27] LABS: BASO % 0.6 % (0.0-1.0); EOS # 0.2 10^3/uL (0.0-0.5); EOS % 3.3 % (0.0-3.0); HEMATOCRIT 39.3 % (36.0-47.0); HEMOGLOBIN 12.6 g/dl (12.0-15.5); LYMPH # 2.2 10^3/uL (1.5-5.0); LYMPH % 30.3 % (24.0-44.0); MEAN CORPUSCULAR HEMOGLOBIN 29.2 pg (27.0-33.0); MEAN CORPUSCULAR HGB CONC 32.1 g/dl (32.0-36.5); MONO # 0.7 10^3/uL (0.0-0.8); MONO % 9.6 % (2.0-8.0); NEUTROPHILS # 4.1 10^3/uL (1.5-8.5); NEUTROPHILS % 55.8 % (36.0-66.0); PLATELET COUNT, AUTOMATED 287 10^3/uL (150-450); RED BLOOD COUNT 4.32 10^6/uL (4.00-5.40); WHITE BLOOD COUNT 7.3 10^3/uL (4.0-10.0)
[2024-12-17 11:00] LABS: ALBUMIN 3.7 G/DL (3.2-5.2); ALKALINE PHOSPHATASE 81 U/L (35-104); ALT/SGPT 26 U/L (7.0-40); AST/SGOT 23 U/L (<34); BILIRUBIN,TOTAL 0.5 MG/DL (0.3-1.2); BLOOD UREA NITROGEN 9 MG/DL (9-23); CALCIUM LEVEL 9.1 MG/DL (8.5-10.1); CARBON DIOXIDE LEVEL 27 MMOL/L (20-31); CHLORIDE LEVEL 106 MMOL/L (98-107); CHOLESTEROL LEVEL 124 MG/DL (<200); CREATININE FOR GFR 0.66 MG/DL (0.55-1.30); GLOMERULAR FILTRATION RATE > 90.0 (>60); GLUCOSE, FASTING 86 MG/DL (60-100); HDL CHOLESTEROL 38.7 MG/DL (>40); LDL CHOLESTEROL 69.9 MG/DL (<100); NON-HDL-C 85.3 MG/DL; POTASSIUM SERUM 4.4 MMOL/L (3.5-5.1); SODIUM LEVEL 139 MMOL/L (136-145); TOTAL PROTEIN 7.1 G/DL (5.7-8.2); TRIGLYCERIDES LEVEL 77 MG/DL (<150)
[2024-12-17 11:04] LABS: FREE T4 1.06 NG/DL (0.89-1.76); THYROID STIMULATING HORMONE 1.086 uIU/ML (0.55-4.78)
== END ==
LOC: M PLALAB 08:52
PROVIDERS: ATTEND Nurse Practitioner Family
DX: R53.83 Other fatigue (principal); Z13.220 Encounter for screening for lipoid disorders

== ENCOUNTER → 2025-05-19 | Outpatient (CLI) | payer OTHER ==
[2025-05-19 14:26] LABS: BASO # 0.1 10^3/uL (0.0-0.2); BASO % 0.6 % (0.0-1.0); EOS # 0.4 10^3/uL (0.0-0.5); EOS % 4.0 % (0.0-3.0); LYMPH # 2.5 10^3/uL (1.5-5.0); LYMPH % 27.0 % (24.0-44.0); MONO # 0.8 10^3/uL (0.0-0.8); MONO % 8.7 % (2.0-8.0); NEUTROPHILS # 5.5 10^3/uL (1.5-8.5); NEUTROPHILS % 59.4 % (36.0-66.0); PLATELET COUNT, AUTOMATED 326 10^3/uL (150-450)
[2025-05-19 15:17] LABS: FREE T4 1.02 NG/DL (0.89-1.76)
[2025-05-19 15:21] LABS: CREATININE, URINE 144.4 MG/DL
[2025-05-19 15:24] LABS: MALB URINE SIEMENS < 3.0 MG/L
[2025-05-19 15:25] LABS: ALT/SGPT 24 U/L (7.0-40); AST/SGOT 22 U/L (<34); CALCIUM LEVEL 9.1 MG/DL (8.5-10.1); CARBON DIOXIDE LEVEL 26 MMOL/L (20-31); CHLORIDE LEVEL 106 MMOL/L (98-107); CREATININE FOR GFR 0.66 MG/DL (0.55-1.30); GLOMERULAR FILTRATION RATE > 90.0 (>60); POTASSIUM SERUM 4.3 MMOL/L (3.5-5.1); SODIUM LEVEL 143 MMOL/L (136-145)
== END ==
LOC: M PLALAB 11:02
PROVIDERS: ATTEND Nurse Practitioner Family
DX: R80.9 Proteinuria, unspecified (principal); R53.83 Other fatigue; R74.8 Abnormal levels of other serum enzymes